=== PATIENT | female | born 1940 | race Caucasian/White ===

== ENCOUNTER 2022-07-24 07:59 | Inpatient (IN) | payer OTHER ==
--- OUTSIDE RECORDS SUMMARY | 2022-07-24 08:02 | XMS REPORT | Continuity of Care Document ---
:1940 Author Organization [facility] Address [address] [place] [address] Dr. Diaz [address] [place] [address] Care Team Providers Name Role Phone CHELLE ARRINGTON Attending Clinician Unavailable Briseyda Attending Clinician Unavailable Briseyda Admitting Clinician Unavailable Payers Payer Name Policy Type Policy Number Effective Date Expiration Date Rojelio little [place]ICARE [place]: [id number] 2005 [place] 00:00:00 Problems This patient has no known problems. Allergies, Adverse Reactions, Alerts This patient has no known allergies or adverse reactions. Medications This patient has no known medications. Procedures This patient has no known procedures. Encounters Start End Encounter Admission Attending Care Care Encounter Source Date/Time Date/Time Type Type Clinicians Facility Department ID 2022-07-27 Inpatient NURY [facility] [id number] [place] 10:00:00 CHELLE [id number] [facility] 2022-06-12 Inpatient SEDRICK ARRINGTON [facility] [id number] [place] 13:00:00 CHELLE [id number] [facility] 2020-07-03 2020-07-03 Outpatient Briseyda [facility] [id number] [place] 02:33:00 02:33:00 [facility] Results This patient has no known results.
[2022-07-24 12:07] LABS: Absolute Lymphocytes (CBC) 1.4 K/uL (0.7-4.9); Hematocrit 36.5 % (36.0-45.0); Lymphocytes % 33.4 % (15.3-44.8); MCV 94.7 fL (80-100); MPV 7.9 fL (7.6-11.3); RBC Red Blood Cell Count 3.85 M/uL (3.86-4.86)
[2022-07-24 12:18] LABS: Urine Blood Negative (Negative); Urine Glucose Negative (Negative); Urine Protein Negative (Negative); Urine pH 5.5 (5.0-7.0)
[2022-07-24 12:19] LABS: Albumin 3.6 g/dL (3.4-5.0); Bilirubin Total 0.6 mg/dL (0.2-1.0); Magnesium 2.1 mg/dL (1.6-2.4); Potassium 4.3 mmol/L (3.5-5.1); Protein, Total 6.7 g/dL (6.4-8.2)
[2022-07-24 12:31] LABS: Urine Mucus Slight /HPF (None Seen); Urine RBC <5 /HPF (None Seen)
[2022-07-24] MEDS ORDERED: NA CHLORIDE 0.9% 1,000 ML ONE ×2 (12:36→18:53)
--- NOTE | 2022-07-24 13:24 | RAD REPORT ---
EXAM DESCRIPTION: CT - Abdomen Pelvis Wo Contrast - 07/24/2022 1:05 pm CLINICAL HISTORY: DIARRHEA Recent diagnosis of C diff infection COMPARISON: No comparisons TECHNIQUE: Axial [address] imaging of the abdomen and pelvis was performed without IV contrast. No IV contrast was given because of allergy, abnormal renal function, patient refusal or physician re quest. No oral contrast administered. All CT scans are performed using dose optimization technique as appropriate and may include automated exposure control or mA/KV adjustment according to patient size. FINDINGS: No suspicious findings in the lung bases. The liver, spleen and pancreas show no suspicious findings on non-contrast imaging. Focal 12 x 6 mm c alcification present in the body of the pancreas. No associated solid or cystic mass on noncontrast i maging. No perinephric stranding. Gallbladder and biliary tree are also without suspicious finding. No hydronephrosis or suspicious renal mass. No significant adrenal finding. Isodense renal masses an d pyelonephritis cannot be excluded in the absence of IV contrast. The urinary bladder is without sig nificant finding. No adrenal abnormality seen. No stomach or small bowel acute finding identifiable. No appendicitis findings. There is moderate sto ol volume a dilates the rectum to 7 cm. Moderate stool volume fills the tortuous and redundant sigmoi d colon. The colon is not dilated and there is no wall thickening or edema. No imaging findings of C diff infection. No free air, free fluid or inflammatory stranding. No hernia, mass or bulky lymphadenopathy. Disc and bone degenerative changes are present. No pathologic findings. L5 spondylolysis is present w ith grade 1 spondylolisthesis. IMPRESSION: Moderate stool volume fills the tortuous sigmoid colon and dilates the rectum to 7 cm. C T findings do not suggest any persistent or recurrent C diff infection. No acute or emergent finding seen. Nonacute findings are detailed in the body of the report. Full assessment is limited is the absence of IV contrast.
--- NOTE | 2022-07-24 13:48 | P.HP ---
Certification for Inpatient Patient admitted to: Observation With expected LOS: <2 Midnights Patient will require the following post-hospital care: None Practitioner: I am a practitioner with admitting privileges, knowledge of patient current condition, hospital course, and medical plan of care. Services: Services provided to patient in accordance with Admission requirements found in Title 42 Section 412.3 of the Code of Federal Regulations <Donn Chirinos Rojelio - Last Filed: 07/24/22 14:38> Patient History Date of Service: 07/24/22 Reason for admission: cdiff infection, failed outpt History of Present Illness: Ms. Pena is an 82 yo F with history of hypertension and neuropathy who presents with cdiff after failed outpatient treatment. Diarrhea initially began on 05/22. She tested positive for Cdiff 3 weeks ago and started a course of vancomycin. She stopped on day 11 because she felt it was interfering with her gait. She started a repeat course of vancomycin on 07/18 prescribed by her GI specialist. She reports constant diarrhea and has been using diapers and pads. She denies nausea, vomiting, and fever. She has been eating a bland diet and has lost 13 lbs since onset of symptoms. She reports weakness and fatigue. CTAP shows moderate stool volume fills the tortuous sigmoid colon and dilates the rectum to 7 cm. Vital signs stable. Labs unremarkable. - Past Medical/Surgical History Has patient received pneumonia vaccine in the past: No Diabetic: No -: neuropathy -: hypertension -: hysterectomy -: tubal ligation -: knee sx - Family History Family History: Reviewed- Non-Contributory - Social History Smoking Status: Never smoker Alcohol use: No CD- Drugs: No Caffeine use: No Place of Residence: Home <Donn Chirinos - Last Filed: 07/24/22 14:38> Date of Service: 07/24/22 <Jeremy Rolon - Last Filed: 07/24/22 19:11> Review of Systems General: Weakness Eyes: Unremarkable ENT: Unremarkable Respiratory: Unremarkable Cardiovascular: Unremarkable Gastrointestinal: Diarrhea, As per HPI Genitourinary: Unremarkable Musculoskeletal: Unremarkable Integumentary: Unremarkable Neurological: Unremarkable Lymphatics: Unremarkable <Donn Chirinos - Last Filed: 07/24/22 14:38> Physical Examination - Physical Exam General: Alert, In no apparent distress HEENT: Atraumatic, Normocephalic, Sclerae nonicteric Neck: Supple, No LAD Respiratory: Clear to auscultation bilaterally, Normal air movement Cardiovascular: Regular rate/rhythm, Normal S1 S2 Gastrointestinal: No tenderness, Hyperactive Musculoskeletal: No tenderness Integumentary: No rashes Neurological: Normal speech, Normal affect - Studies Laboratory Data (last 24 hrs) 07/24/22 11:55: Sodium 140, Potassium 4.3, BUN 15, Creatinine 0.75, Glucose 96, Magnesium 2.1, Total Bilirubin 0.6, AST 22, ALT 28, Alkaline Phosphatase 70, Lipase 251 07/24/22 11:55: WBC 4.10 L, Hgb 12.2, Hct 36.5, Plt Count 189 <Donn Chirinos - Last Filed: 07/24/22 14:38> - Studies Laboratory Data (last 24 hrs) 07/24/22 11:55: Sodium 140, Potassium 4.3, BUN 15, Creatinine 0.75, Glucose 96, Magnesium 2.1, Total Bilirubin 0.6, AST 22, ALT 28, Alkaline Phosphatase 70, Lipase 251 07/24/22 11:55: WBC 4.10 L, Hgb 12.2, Hct 36.5, Plt Count 189 <Jeremy Rolon - Last Filed: 07/24/22 19:11> Assessment and Plan - Plan Assessment Cdiff, failed outpatient treatment Dehydration Neuropathy Hypertension Plan Cdiff, failed outpatient treatment - resume oral vanc, add IV flagyl - GI consulted - stool cultures pending, will consider ID consult pending results - CTAP shows moderate stool volume fills the tortuous sigmoid colon and dilates the rectum to 7 cm; patient was taking antidiarrheal, will hold for now - patient reports 13lb weight loss; continue bland diet Dehydration - continue IV fluids Neuropathy - resume home medication Hypertension - resume home medication DVT ppx: Lovenox Full code Discharge Plan: Home Plan to discharge in: 24 Hours - Advance Directives Does patient have a Living Will: No Does patient have a Durable POA for Healthcare: No - Code Status/Comfort Care Code Status Assessed: Yes (full code ) Critical Care: No Time Spent Managing Pts Care (In Minutes): 70 <Donn Chirinos - Last Filed: 07/24/22 14:38> Physician Review: Patient Assessed, Agree with Above Assessment and Plan <Jeremy Rolon - Last Filed: 07/24/22 19:11>
--- NOTE | 2022-07-24 14:01 | ER ---
Nurse's Notes [facility] Name: Sendy Pena Age: 82 yrs Sex: Female : 1940 Arrival Date: 07/24/2022 Time: 08:17 Bed 16 Private MD: Adonis Rosario H Diagnosis: Enterocolitis due to Clostridium difficile;Dehydration Presentation: 07/24 08:35 Chief complaint: Patient states: Diarrhea that began on 05/22/2022. Pt reports that she ss was diagnosed with CDIFF by Dr. Rosario 2-3 weeks ago and is currently taking Vancomycin for treatment. Pt is here today because she is weak and has lost a total of 13 lbs. Coronavirus screen: Client denies travel out of the [place] in the last 14 days. Ebola Screen: Patient denies exposure to infectious person. Patient denies travel to an Ebola-affected area in the 21 days before illness onset. Initial Sepsis Screen: Does the patient meet any 2 criteria? No. Patient's initial sepsis screen is negative. Does the patient have a suspected source of infection? No. Patient's initial sepsis screen is negative. Risk Assessment: Do you want to hurt yourself or someone else? Patient reports no desire to harm self or others. Onset of symptoms was May 22, 2022. 08:35 Method Of Arrival: Ambulatory ss 08:35 Acuity: SABA 3 ss Triage Assessment: 20:00 General: Appears in no apparent distress. comfortable, well groomed, well developed, pf1 Behavior is calm, cooperative, appropriate for age, quiet. Pain: Denies pain. EENT: No deficits noted. Neuro: No deficits noted. Cardiovascular: No deficits noted. 20:00 Respiratory: No deficits noted. GI: Abdomen is flat, non-distended, Stools are reported pf1 to be loose, diarrhea. with brown color stool. Bowel sounds present X 4 quads. Abd is soft and non tender Reports diarrhea, Patient reports diarrhea for 60 days and has done 4 rounds of antibiotics. Patient stated was diagnosed with c-diff 3 weeks ago. : No deficits noted. Derm: No deficits noted. Historical: - PMHx: 21:09 Hypertensive disorder; neuropathy; pf1 - PSHx: 21:09 hysterectomy; right knee; tubal ligation; pf1 - Immunization history:: Client reports receiving the 2nd dose of the Covid vaccine. - Social history:: Smoking status: Patient denies any tobacco usage or history of. - Family history:: not pertinent. Screenin:40 Abuse screen: Denies threats or abuse. pf1 21:02 Nutritional screening: No deficits noted. Tuberculosis screening: No symptoms or risk pf1 factors identified. Fall Risk None identified. IV access (20 points). Assessment: 16:00 General: Pt ambulatory to restroom without difficulty. kb3 19:30 General: Appears in no apparent distress. comfortable, well groomed, well developed, pf1 Behavior is calm, cooperative, appropriate for age, quiet. 19:30 Pain: Denies pain. Neuro: No deficits noted. Cardiovascular: No deficits noted. pf1 Respiratory: No deficits noted. GI: Abdomen is flat, non-distended, Bowel sounds present X 4 quads. Abd is soft and non tender Reports diarrhea. : No deficits noted. EENT: No deficits noted. Vital Signs: 08:35 BP 127 / 90; Pulse 71; Resp 16; Temp 98.0(O); Pulse Ox 98% on R/A; Weight 57.79 kg (M); ss Height 5 ft. 2 in. (157.48 cm); Pain 0/10; 12:45 BP 128 / 83; Pulse 67; Resp 20; Pulse Ox 100% ; kb3 14:00 BP 133 / 81; Pulse 59; Resp 20; Pulse Ox 100% ; kb3 19:30 BP 134 / 83; Pulse 67; Resp 18; Temp 98; Pulse Ox 100% ; Pain 0/10; pf1 20:30 BP 100 / 68; Pulse 61; Resp 18; Temp 98.2; Pulse Ox 100% ; Pain 0/10; pf1 21:00 BP 105 / 69; Pulse 58; Resp 18; Temp 98.2; Pulse Ox 100% ; Pain 0/10; pf1 08:35 Body Mass Index 23.30 (57.79 kg, 157.48 cm) ED Course: 08:17 Patient arrived in ED. cc5 08:17 Adonis Rosario MD is Private Physician. cc5 08:19 Carlo Jackson MD is Attending Physician. rt 08:30 [facility] snw 08:35 Arm band placed on right wrist. ss 08:36 Triage completed. ss 13:06 Abdomen In Process Unspecified. EDMS 13:58 Jeremy Rolon MD is Hospitalizing Provider. rt 14:03 Belinda Noble, RN is Primary Nurse. kb3 17:57 EKG done, by ED staff. rs5 19:30 Inserted saline lock: 22 gauge in right hand, using aseptic technique. Blood collected. pf1 20:00 Patient has correct armband on for positive identification. Placed in gown. Bed in low pf1 position. Call light in reach. 20:45 No provider procedures requiring assistance completed. Patient admitted, IV remains in pf1 place. Administered Medications: 12:46 Drug: NS 0.9% 1000 ml Route: IV; Rate: 1 bolus; Site: right hand; kb3 19:30 Follow up: Response: No adverse reaction pf1 21:20 Follow up: IV Status: Infusion continued upon admission pf1 14:31 Drug: Flagyl (metroNIDAZOLE) 500 mg Volume: 100 ml; Route: IVPB; Rate: 200 ml/hr; kb3 Infused Over: 30 mins; Site: right antecubital; 15:30 Follow up: Response: No adverse reaction; IV Status: Completed infusion; IV Intake: kb3 100ml 19:30 Follow up: Response: No adverse reaction pf1 Medication: 21:11 VIS not applicable for this client. pf1 Intake: 15:30 IV: 100ml; Total: 100ml. kb3 Outcome: 14:00 Decision to Hospitalize by Provider. rt 20:45 Condition: stable pf1 20:45 Instructed on the need for admit, Demonstrated understanding of instructions. 20:46 Admitted to Med/surg accompanied by tech, via wheelchair, room 220, Report called to pf1 report called to IRA Marroquin 21:36 Patient left the ED. pf1 Signatures: Dispatcher [employer] EDMS Shira Sequeira, HOMICIDE INVESTIGATOR-C HOMICIDE INVESTIGATOR-CsnJosefina Diamond RN RN ss Belinda Noble, RN RN kb3 Carlo Jackson MD MD rt Rosetta taylor RN RN pf1 [address] rs5 Vibha Walton cc5 Corrections: (The following items were deleted from the chart) 17:08 17:07 General: Pt ambulatory to restroom without difficulty. kb3 kb3 21:21 20:46 Admitted to Med/surg accompanied by tech, via wheelchair, room 220, pf1 pf1 21:33 21:09 Allergies: Codeine [Inactive]; pf1 pf1
--- NOTE | 2022-07-24 14:01 | EDPHYS ---
Physician Documentation [facility] Name: Sendy Pena Age: 82 yrs Sex: Female : 1940 Arrival Date: 07/24/2022 Time: 08:17 Bed 16 Private MD: Adonis Rosario H ED Physician Carlo Jackson HPI: 07/24 09:24 This 82 yrs old Female presents to ER via Ambulatory with complaints of Diarrhea. rt 09:24 The patient presents to the emergency department with diarrhea. Onset: The rt symptoms/episode began/occurred 3 week(s) ago. Possible causes: c diff. The symptoms are aggravated by nothing. The symptoms are alleviated by nothing. And is currently taking oral vancomycin for C. difficile infection. Patient has had many bowel movements per day, stating that she is not improving with oral vancomycin. Is been present for few weeks. Patient states that she progresses to become generally weak. He denies pain, other acute complaints at this time. Symptoms are moderate severity, no other aggravating or alleviating factors.. Historical: - PMHx: 21:09 Hypertensive disorder; neuropathy; pf1 - PSHx: 21:09 hysterectomy; right knee; tubal ligation; pf1 - Immunization history:: Client reports receiving the 2nd dose of the Covid vaccine. - Social history:: Smoking status: Patient denies any tobacco usage or history of. - Family history:: not pertinent. ROS: 09:24 Eyes: Negative for injury, pain, redness, and discharge, ENT: Negative for injury, rt pain, and discharge, Neck: Negative for injury, pain, and swelling, Cardiovascular: Negative for chest pain, palpitations, and edema, Respiratory: Negative for shortness of breath, cough, wheezing, and pleuritic chest pain, MS/Extremity: Negative for injury and deformity, Skin: Negative for injury, rash, and discoloration, Neuro: Negative for headache, weakness, numbness, tingling, and seizure, Psych: Negative for depression, anxiety, suicide ideation, homicidal ideation, and hallucinations. 09:24 Constitutional: Positive for weakness, Negative for fever. 09:24 Abdomen/GI: Positive for diarrhea, Negative for abdominal pain, nausea and vomiting. Exam: 09:24 Constitutional: This is a well developed, well nourished patient who is awake, alert, rt and in no acute distress. Head/Face: Normocephalic, atraumatic. Eyes: Pupils equal round and reactive to light, extra-ocular motions intact. Lids and lashes normal. Conjunctiva and sclera are non-icteric and not injected. Cornea within normal limits. Periorbital areas with no swelling, redness, or edema. ENT: Nares patent. No nasal discharge, no septal abnormalities noted. Tympanic membranes are normal and external auditory canals are clear. Oropharynx with no redness, swelling, or masses, exudates, or evidence of obstruction, uvula midline. Mucous membranes moist. Neck: Trachea midline, no thyromegaly or masses palpated, and no cervical lymphadenopathy. Supple, full range of motion without nuchal rigidity, or vertebral point tenderness. No Meningismus. Chest/axilla: Normal chest wall appearance and motion. Nontender with no deformity. No lesions are appreciated. Cardiovascular: Regular rate and rhythm with a normal S1 and S2. No gallops, murmurs, or rubs. Normal PMI, no JVD. No pulse deficits. Respiratory: Lungs have equal breath sounds bilaterally, clear to auscultation and percussion. No rales, rhonchi or wheezes noted. No increased work of breathing, no retractions or nasal flaring. Abdomen/GI: Soft, non-tender, with normal bowel sounds. No distension or tympany. No guarding or rebound. No evidence of tenderness throughout. Skin: Warm, dry with normal turgor. Normal color with no rashes, no lesions, and no evidence of cellulitis. MS/ Extremity: Pulses equal, no cyanosis. Neurovascular intact. Full, normal range of motion. Neuro: Awake and alert, GCS 15, oriented to person, place, time, and situation. Cranial nerves II-XII grossly intact. Motor strength 5/5 in all extremities. Sensory grossly intact. Cerebellar exam normal. Normal gait. Psych: Awake, alert, with orientation to person, place and time. Behavior, mood, and affect are within normal limits. 18:08 ECG was reviewed by the Attending Physician. rt Vital Signs: 08:35 BP 127 / 90; Pulse 71; Resp 16; Temp 98.0(O); Pulse Ox 98% on R/A; Weight 57.79 kg (M); ss Height 5 ft. 2 in. (157.48 cm); Pain 0/10; 12:45 BP 128 / 83; Pulse 67; Resp 20; Pulse Ox 100% ; kb3 14:00 BP 133 / 81; Pulse 59; Resp 20; Pulse Ox 100% ; kb3 19:30 BP 134 / 83; Pulse 67; Resp 18; Temp 98; Pulse Ox 100% ; Pain 0/10; pf1 20:30 BP 100 / 68; Pulse 61; Resp 18; Temp 98.2; Pulse Ox 100% ; Pain 0/10; pf1 21:00 BP 105 / 69; Pulse 58; Resp 18; Temp 98.2; Pulse Ox 100% ; Pain 0/10; pf1 08:35 Body Mass Index 23.30 (57.79 kg, 157.48 cm) ss MDM: 09:11 Patient medically screened. rt 15:07 Differential diagnosis: Nonspecific abd pain, gastroenteritis, c diff, colitis. Data rt reviewed: vital signs, nurses notes, lab test result(s), EKG, radiologic studies. 07/24 09:06 Order name: CBC with Diff; Complete Time: 12:39 rt 07/24 09:06 Order name: CMP; Complete Time: 12:39 rt 07/24 09:06 Order name: Lipase; Complete Time: 12:39 rt 07/24 09:06 Order name: Urine Microscopic Only; Complete Time: 12:39 rt 07/24 09:06 Order name: Magnesium; Complete Time: 12:39 rt 07/24 12:18 Order name: Urine Dipstick-Ancillary; Complete Time: 12:39 EDMS 07/24 09:06 Order name: IV Saline Lock; Complete Time: 12:13 rt 07/24 09:06 Order name: EKG; Complete Time: 09:07 rt 07/24 13:06 Order name: Abdomen ; Complete Time: 13:28 EDMS 07/24 14:22 Order name: CONS Physician Consult EDMS 07/24 14:39 Order name: SARS RAPID eb 07/24 09:06 Order name: Labs collected and sent; Complete Time: 12:13 rt 07/24 09:06 Order name: Urine Dipstick-Ancillary (obtain specimen); Complete Time: 12:13 rt 07/24 09:06 Order name: EKG - Nurse/Tech; Complete Time: 17:57 rt EC:08 Rate is 52 beats/min. Rhythm is regular, Sinus bradycardia with No ectopy, Right bundle rt branch block. QRS [place] is Normal. [place] interval is normal. QRS interval is normal. No Q waves. Interpreted by me. Administered Medications: 12:46 Drug: NS 0.9% 1000 ml Route: IV; Rate: 1 bolus; Site: right hand; kb3 19:30 Follow up: Response: No adverse reaction pf1 21:20 Follow up: IV Status: Infusion continued upon admission pf1 14:31 Drug: Flagyl (metroNIDAZOLE) 500 mg Volume: 100 ml; Route: IVPB; Rate: 200 ml/hr; kb3 Infused Over: 30 mins; Site: right antecubital; 15:30 Follow up: Response: No adverse reaction; IV Status: Completed infusion; IV Intake: kb3 100ml 19:30 Follow up: Response: No adverse reaction pf1 Disposition Summary: 07/24/22 14:00 Hospitalization Ordered Hospitalization Status: Inpatient Admission rt Provider: Jeremy Rolon rt Location: Telemetry/MedSurg (observation) rt Condition: Stable rt Problem: an ongoing problem rt Symptoms: are unchanged rt Bed/Room Type: Standard rt Room Assignment: 220(07/24/22 20:27) cg Diagnosis - Enterocolitis due to Clostridium difficile rt - Dehydration rt Forms: - Medication Reconciliation Form rt - SBAR form rt Signatures: Dispatcher [employer] EDMS Josefina Lyles RN RN ss Garcia, Cindy, RN RN cg Belinda Noble RN RN kb3 Carlo Jackson MD MD rt Rosetta atylor RN RN pf1 Corrections: (The following items were deleted from the chart) 13:06 09:11 Abdomen Pelvis W Con+CT.RAD.BRZ ordered. EDMS EDMS 20:27 14:00 rt cg 21:33 21:09 Allergies: Codeine [Inactive]; pf1 pf1
[2022-07-24] MEDS ORDERED: METRONIDAZOLE 500mg IVPB 500 MG/100 ML BAG IV ONE ×2 (14:17→18:53)
[2022-07-24 16:02] LABS: SARS-CoV-2 Antigen Rapid Res Negative (Negative)
[2022-07-24] MEDS ORDERED: ONDANSETRON 4 MG/2 ML VIAL IV PRN (17:48)
[2022-07-24] MEDS ORDERED: ACETAMINOPHEN 500 MG TAB PO PRN (17:48)
[2022-07-24] MEDS ORDERED: ENOXAPARIN 40 MG/0.4 ML SQ ONE (18:53)
[2022-07-24] MEDS: ENOXAPARIN 40 MG/0.4 ML SQ SCH (19:05)
[2022-07-24] MEDS: NA CHLORIDE 0.9% 1,000 ML IV SCH (19:05)
[2022-07-24] MEDS: METRONIDAZOLE 500mg IVPB 500 MG/100 ML BAG IV SCH (19:05)
[2022-07-24] MEDS: VANCOMYCIN ORAL SOLN 250 MG/5 ML OSYR PO SCH (19:05)
[2022-07-24 22:00] VITALS: BMI 23.4
[2022-07-25] MEDS: VANCOMYCIN ORAL SOLN 250 MG/5 ML OSYR PO SCH (01:00)
[2022-07-25] MEDS: METRONIDAZOLE 500mg IVPB 500 MG/100 ML BAG IV SCH (01:00)
[2022-07-25] MEDS: NA CHLORIDE 0.9% 1,000 ML IV SCH ×3 (03:48→13:48)
[2022-07-25 03:49] LABS: Absolute Lymphocytes (CBC) 1.3 K/uL (0.7-4.9); Hematocrit 29.8 % (36.0-45.0); Lymphocytes % 37.8 % (15.3-44.8); MCV 94.4 fL (80-100); MPV 7.8 fL (7.6-11.3); RBC Red Blood Cell Count 3.16 M/uL (3.86-4.86)
[2022-07-25 04:01] LABS: Magnesium 1.8 mg/dL (1.6-2.4); Phosphorus 3.6 mg/dL (2.5-4.9); Potassium 3.4 mmol/L (3.5-5.1)
[2022-07-25] MEDS ORDERED: MAGNESIUM SULFATE 1 gm IVPB 1 GM/100 ML BAG IV ONE (04:56)
[2022-07-25] MEDS: FIDAXOMICIN 200 MG TABLET PO SCH ×2 (09:00→20:54)
[2022-07-25] MEDS ORDERED: POTASSIUM CL SA 10 MEQ TAB PO ONE (09:00)
[2022-07-25 09:16] LABS: C.diff Antigen/Toxin Ag neg : Tox neg (NEG : NEG)
[2022-07-25] MEDS: ENOXAPARIN 40 MG/0.4 ML SQ SCH (09:25)
--- NOTE | 2022-07-25 19:06 | P.PN ---
Subjective Date of Service: 07/25/22 Chief Complaint: cdiff infection, failed outpt No acute events overnight. She reports numerous watery bowel movements today. She states that she was diagnosed with Clostridioides Difficile several weeks ago, and today would be day 12 of PO vancomycin. She states that this medication has not helped her symptoms at all. She denies abdominal pain, nausea, or vomiting. Review of Systems 10-point ROS is otherwise unremarkable Gastrointestinal: Diarrhea Physical Examination - Vital Signs Temperature: 97.7 F Blood Pressure: 134/76 Pulse: 76 Respirations: 16 Pulse Ox (%): 100 - Physical Exam General: Alert, In no apparent distress, Oriented x3 HEENT: Atraumatic, Mucous membr. moist/pink, EOMI, Sclerae nonicteric Neck: JVD not distended Respiratory: Clear to auscultation bilaterally, Normal air movement Cardiovascular: No edema, Regular rate/rhythm Gastrointestinal: Soft and benign, Non-distended, No tenderness, No rebound, No guarding, Hyperactive Musculoskeletal: No clubbing Integumentary: No rashes Neurological: Normal speech, Cranial nerves 3-12 intact, Normal affect Assessment And Plan - Plan # Clostridioides Difficile Diarrhea, failed outpatient treatment # Hypokalemia, Hypomagnesemia due to above - Consulted Infectious Diseases and spoke with Dr. Waters - recommendations appreciated - Agrees with fidaxomicin 200 mg PO BID x 10 days - Recommends cholestyramine + Pro-Biotic - Stool cultures, ova + parasites, fecal leukocytes - Isolation precautions # Hypertension # Neuropathy - Resume home medications once verified Jeremy Rolon M.D.
[2022-07-25] MEDS: LACTOBACILLUS/ACIDOPHILUS TAB PO SCH (20:55)
[2022-07-26] MEDS: NA CHLORIDE 0.9% 1,000 ML IV SCH ×3 (00:37→22:51)
[2022-07-26 04:07] LABS: Potassium 3.9 mmol/L (3.5-5.1)
[2022-07-26] MEDS ORDERED: POTASSIUM CL SA 10 MEQ TAB PO ONE (04:44)
[2022-07-26] MEDS: FIDAXOMICIN 200 MG TABLET PO SCH ×2 (08:55→20:02)
[2022-07-26] MEDS: ENOXAPARIN 40 MG/0.4 ML SQ SCH (08:55)
[2022-07-26] MEDS: CHOLESTYRAMINE/ASP 4 GM/PKT PO SCH ×2 (08:55→17:15)
[2022-07-26] MEDS: LACTOBACILLUS/ACIDOPHILUS TAB PO SCH ×3 (08:56→20:02)
[2022-07-26] MEDS: ENALAPRIL PO SCH (08:57)
[2022-07-26] MEDS: HYDROCHLOROTHIAZIDE PO SCH (08:57)
[2022-07-26] MEDS: PREGABALIN 100 MG PO SCH ×2 (08:58→20:03)
--- NOTE | 2022-07-26 17:28 | P.PN ---
Subjective Date of Service: 07/26/22 Chief Complaint: cdiff infection, failed outpt No acute events overnight. She continues to have multiple watery bowel movements per day. She believes that her stool is becoming more formed. She states that the fidaxomicin seems to be helping. She denies abdominal pain, nausea, or vomi ting. Review of Systems 10-point ROS is otherwise unremarkable Gastrointestinal: Diarrhea Physical Examination - Vital Signs Temperature: 98.1 F Blood Pressure: 110/65 Pulse: 64 Respirations: 16 Pulse Ox (%): 96 Assessment And Plan - Plan - Physical Exam General: Alert, In no apparent distress, Oriented x3 HEENT: Atraumatic, Mucous membr. moist/pink, EOMI, Sclerae nonicteric Neck: JVD not distended Respiratory: Clear to auscultation bilaterally, Normal air movement Cardiovascular: No edema, Regular rate/rhythm Gastrointestinal: Soft and benign, Non-distended, No tenderness, No rebound, No guarding, Hyperactive Musculoskeletal: No clubbing Integumentary: No rashes Neurological: Normal speech, Cranial nerves 3-12 intact, Normal affect # Clostridioides Difficile Diarrhea, failed outpatient treatment # Hypokalemia, Hypomagnesemia due to above - Consulted Infectious Diseases and spoke with Dr. Waters - recommendations appreciated - Agrees with fidaxomicin 200 mg PO BID - day 2 of 10 - Recommends cholestyramine + Pro-Biotic - Stool cultures, ova + parasites, fecal leukocytes - Isolation precautions # Hypertension # Neuropathy - Resume home medications once verified Jeremy Rolon M.D.
[2022-07-26 21:52] VITALS: O2SAT 98
--- NOTE | 2022-07-27 00:22 | P.PN ---
Subjective Date of Service: 07/26/22 Chief Complaint: cdiff infection, failed outpt, dehydration, diarrhea Subjective: Improving (Feels much better on Dificid. Tolerating po diet.) Physical Examination - Vital Signs Temperature: 97.2 F Blood Pressure: 128/71 Pulse: 66 Respirations: 18 Pulse Ox (%): 98 Assessment And Plan - Current Problems (Diagnosis) (1) Clostridium difficile colitis Current Visit: Yes Status: Acute (2) Diarrhea Current Visit: Yes Status: Acute (3) Dehydration Current Visit: Yes Status: Acute (4) RLQ abdominal pain Current Visit: Yes Status: Acute (5) LLQ abdominal pain Current Visit: Yes Status: Acute - Plan REC: 1) continue Dificid 2) will sign off Physician Review: Patient Assessed, Agree with Above Assessment and Plan
[2022-07-27] MEDS: LACTOBACILLUS/ACIDOPHILUS TAB PO SCH ×2 (08:21→13:03)
[2022-07-27] MEDS: HYDROCHLOROTHIAZIDE PO SCH (08:21)
[2022-07-27] MEDS: CHOLESTYRAMINE/ASP 4 GM/PKT PO SCH (08:21)
[2022-07-27] MEDS: ENOXAPARIN 40 MG/0.4 ML SQ SCH (08:21)
[2022-07-27] MEDS: ENALAPRIL PO SCH (08:21)
[2022-07-27] MEDS: FIDAXOMICIN 200 MG TABLET PO SCH (08:21)
[2022-07-27] MEDS: PREGABALIN 100 MG PO SCH (08:22)
--- NOTE | 2022-07-27 12:04 | P.CNS ---
Date of Consult: 07/27/22 This is a 82-year-old female with significant past medical history of hypertension neuropathy coming in with C. difficile colitis currently on fidaxomicin and probiotic. Patient diarrhea started in May and her C. difficile came back positive and she was treated with vancomycin. Her current CT scan showsModerate stool volume fills the tortuous sigmoid colon and dilates the rectum to 7 cm. Patient diarrhea has improved Past medical history Neuropathy Hypertension Hysterectomy Tubal ligation Knee surgeries Family history noncontributory Social history non-smoker nondrinker Medication fidaxomicin and probiotic see MARS further medication Allergies no known drug allergies except codeine Review of systems 10 point review was performed Physical exam: Patient laying in bed not in any acute cardiopulmonary distress Vital signs reviewed HEENT unremarkable Neck supple, no lymphadenopathy Lungs: Basal crackles Heart S1-S2 regular Abdomen soft, bowel sound present Extremity: No edema no rashes CBC shows 3.3 WBC hemoglobin 10.2 platelets are 149 Assessment and plan: C. difficile colitis currently being treated with fidaxomicin and probiotic and nutritional supplements Dehydration Neuropathy Anemia of chronic disease Moderate protein calorie malnourishment Prognosis guarded Thank you for consult
[2022-07-27 12:13] VITALS: BP 127/70; TEMP 99.3
--- NOTE | 2022-07-27 12:15 | P.DS ---
Discharge Date: 07/27/22 Disposition: ROUTINE DISCHARGE Discharge Condition: GOOD Reason for Admission: cdiff infection, failed outpt, dehydration, diarrhea Consultations: Infectious disease and gastroenterology Brief History of Present Illness: Ms. Pena is an 82 yo F with history of hypertension and neuropathy who presents with cdiff after failed outpatient treatment. Diarrhea initially began on 05/22. She tested positive for Cdiff 3 weeks ago and started a course of vancomycin. She stopped on day 11 because she felt it was interfering with her gait. She started a repeat course of vancomycin on 07/18 prescribed by her GI spe cialist. She reports constant diarrhea and has been using diapers and pads. She denies nausea, vomiting, and fever. She has been eating a bland diet and has lost 13 lbs since onset of symptoms. She reports weakness and fatigue. CTAP shows moderate stool volume fills the tortuous sigmoid colon and dilates the rectum to 7 cm. Vital signs stable. Labs unremarkable. Hospital Course: Patient has done well during hospital stay. She is doing better and her diarrhea is resolved. She states no diarrhea for 24 to 48 hours. Continue Dificid for 12 more days. Recommend probiotic as well. Outpatient gastroenterology follow-up with Dr. Rosario. Vital Signs/Physical Exam: Temp Pulse Resp BP Pulse Ox 98.7 F 70 16 119/75 99 07/27/22 08:00 07/27/22 08:00 07/27/22 08:00 07/27/22 08:00 07/27/22 08:00 General: Alert, In no apparent distress, Oriented x3 Laboratory Data at Discharge: WBC 3.30 K/uL (4.3-10.9) L 07/25/22 03:24 Hgb 10.2 g/dL (12.0-15.0) L D 07/25/22 03:24 Hct 29.8 % (36.0-45.0) L 07/25/22 03:24 Plt Count 149 K/uL (152-406) L 07/25/22 03:24 Sodium 141 mmol/L (136-145) 07/26/22 03:30 Potassium 3.9 mmol/L (3.5-5.1) D 07/26/22 03:30 BUN 16 mg/dL (7-18) 07/26/22 03:30 Creatinine 0.91 mg/dL (0.55-1.02) 07/26/22 03:30 Glucose 98 mg/dL (74-106) 07/26/22 03:30 Phosphorus 3.6 mg/dL (2.5-4.9) 07/25/22 03:24 Magnesium 2.0 mg/dL (1.6-2.4) 07/26/22 03:30 Total Bilirubin 0.6 mg/dL (0.2-1.0) 07/24/22 11:55 AST 22 U/L (15-37) 07/24/22 11:55 ALT 28 U/L (13-56) 07/24/22 11:55 Alkaline Phosphatase 70 U/L (45-117) 07/24/22 11:55 Lipase 251 U/L (73-393) 07/24/22 11:55 Home Medications: Enalapril/Hydrochlorothiazide [Enalapril-Hctz 10-25 mg Tablet] 0.5 tab PO DAILY 07/24/22 Pregabalin [Lyrica] 100 mg PO BID 07/24/22 Fidaxomicin [Dificid] 200 mg PO BID #24 tab 07/27/22 Lactobacillus Acidophilus [Florajen Acidophilus] 1 each PO DAILY #30 cap 07/27/22 New Medications: Fidaxomicin [Dificid] 200 mg PO BID #24 tab Lactobacillus Acidophilus [Florajen Acidophilus] 1 each PO DAILY #30 cap Physician Discharge Instructions: -DC IV and DC home -Follow-up with PCP in 1 to 2 weeks -Follow-up with GI in 1 to 2 weeks -Please call Dr. Gonzalez at [phone] if any questions regarding hospital stay -Please call nursing station at [phone] if any nursing or medication questions -Return to the emergency room if symptoms worsen Diet: Regular Activity: Fall precautions Followup: Adonis Rosario MD [Primary Care Provider] - Time spent managing pt's care (in minutes): 35
--- NOTE | 2022-07-27 15:04 | EKG ---
Test Date: 2022-07-24 Test Time: 17:53:10 Research Spec: [place] MEASUREMENT RESULTS: Intervals: Rate: 52 ME: 208 QRSD: 140 QT: 518 QTc: 481 [place]: P: 76 ME: 208 QRS: 76 T: 58 INTERPRETIVE STATEMENTS: Sinus bradycardia Right bundle branch block Abnormal ECG No previous ECG available for comparison Electronically Signed On 07-27-22 14:57:56 HANDLE MACHINE OPERATOR by Bj Cutler
== END 2022-07-27 14:27 | disposition home or self-care (01) | DRG 372 ==
LOC: ER 07:59 → ERHOLD 14:20 → 2ND 20:41
PROVIDERS: ADMIT Internal Medicine; ATTEND Hospitalist
DX: A04.72 Enterocolitis due to Clostridium difficile, not specified as recurrent (principal); E44.0 Moderate protein-calorie malnutrition; E86.0 Dehydration; I10 Essential (primary) hypertension; E87.6 Hypokalemia; E83.42 Hypomagnesemia; D63.8 Anemia in other chronic diseases classified elsewhere; G62.9 Polyneuropathy, unspecified; Z68.23 Body mass index [BMI] 23.0-23.9, adult; Z90.710 Acquired absence of both cervix and uterus; Z20.822 Contact with and (suspected) exposure to COVID-19
CPT/HCPCS: 36415; 74176; 80048; 80053; 81003; 81015; 83690; 83735; 84100; 85025; 87045; 87046; 87177; 87209; 87324; 87811; 93005; 96361; 96365; 99285; J1650; J3475; J7030; J8499